=== PATIENT | male | born 2000 | race African-American/Black ===

== ENCOUNTER 2021-09-11 17:41 | Emergency (ER) | payer MEDICAID ==
[~2021-09-11] VITALS: Ht 175.3 cm; Wt 65.0 kg
[2021-09-11 18:06] VITALS: BP 126/83
[2021-09-11] MEDS ORDERED: CEFTRIAXONE SODIUM 250 MG/VIAL IM ONE (20:15)
[2021-09-11] MEDS ORDERED: AZITHROMYCIN 500 MG TABLET PO ONE (20:15)
[2021-09-13 07:09] LABS: HIV SCREEN 4G Non Reactive (Non Reactive)
[2021-09-14 09:06] LABS: NEISSERIA GONORRHOEAE NAA Negative (Negative)
== END 2021-09-11 18:31 | disposition home or self-care (01) ==
LOC: ER 17:41
DX: A56.01 Chlamydial cystitis and urethritis (principal); Z71.89 Other specified counseling
CPT/HCPCS: 87389; 87491; 87591; 96372; 99283; J0696